=== PATIENT | male | born 1995 | race Caucasian/White ===

== ENCOUNTER 2024-01-04 18:31 | Emergency (ER) | payer OTHER ==
[~2024-01-04] VITALS: Ht 172.7 cm; Wt 80.0 kg
[2024-01-04 19:12] VITALS: BP 108/65; RESP 18; TEMP 98.3; O2SAT 99
[2024-01-04 19:21] VITALS: PULSE 85; O2SAT 100
[2024-01-04] MEDS ORDERED: KETOROLAC 15MG/ML VIAL IM ONE (20:45)
== END 2024-01-04 21:07 | disposition left against medical advice (07) ==
LOC: ER 18:31
DX: G89.29 Other chronic pain (principal); M54.9 Dorsalgia, unspecified
CPT/HCPCS: 99281

== ENCOUNTER 2024-12-15 16:06 | Emergency (ER) | payer MEDICAID ==
[~2024-12-15] VITALS: Ht 172.7 cm; Wt 65.0 kg
[2024-12-15 16:13] VITALS: O2SAT 98
[2024-12-15 16:59] LABS: BASOPHILS % 0.8 % (0.0-2.0); EOSINOPHILS % 1.2 % (0.0-5.0); HEMATOCRIT. 43.2 % (42.0-52.0); HEMOGLOBIN. 14.7 g/dL (14.0-18.0); LYMPHOCYTES % 30.5 % (20.0-50.0); MEAN PLATELET VOLUME 9.5 fl (7.4-10.4); MONOCYTES % 9.9 % (2.0-8.0); NEUTROPHILS % 57.6 % (40.0-76.0); PLATELET 164 x1000/uL (130-400); RED BLOOD CELL COUNT 5.00 mill/uL (4.7-6.1); RED CELL DISTRIBUTION WIDTH 12.9 % (11.6-14.6)
[2024-12-15 17:18] LABS: CREATININE 1.0 mg/dL (0.6-1.3)
[2024-12-15 17:19] LABS: UREA NITROGEN BLOOD 10 mg/dL (9-23)
[2024-12-15 17:20] LABS: ASPARTATE AMINOTRANSFERASE 21 IU/L (<34)
[2024-12-15 17:21] LABS: BILIRUBIN DIRECT 0.2 mg/dL (<=3.0); BILIRUBIN TOTAL 0.6 mg/dL (0.1-1.0); PROTEIN TOTAL 7.6 g/dL (6.0-8.3)
[2024-12-15] MEDS: ONDANSETRON 4MG ODT PO ONE (17:39)
[2024-12-15] MEDS: FAMOTIDINE 20MG TABLET PO ONE (17:39)
[2024-12-15 18:14] LABS: CREATININE 1.1 mg/dL (0.6-1.3)
[2024-12-15 18:15] LABS: UREA NITROGEN BLOOD 9 mg/dL (9-23)
[2024-12-15 19:05] LABS: CLARITY URINE CLEAR (CLEAR); COLOR URINE YELLOW (YELLOW); GLUCOSE URINE NEGATIVE (NEGATIVE); KETONES URINE NEGATIVE (NEGATIVE); LEUKOCYTE ESTERASE URINE NEGATIVE (NEGATIVE); NITRITE URINE NEGATIVE (NEGATIVE); OCCULT BLOOD URINE NEGATIVE (NEGATIVE); PH URINE 7.0 (4.5-8.0); PROTEIN URINE NEGATIVE (NEGATIVE); SPECIFIC GRAVITY URINE 1.019 (1.005-1.030); UROBILINOGEN URINE 0.2 E.U./dL (0.2-1.0)
[2024-12-15] MEDS ORDERED: ONDA-239 PO (19:54)
[2024-12-15 20:20] VITALS: BP 124/78; PULSE 54; RESP 16; TEMP 36.9; O2SAT 97
== END 2024-12-15 20:22 | disposition home or self-care (01) ==
LOC: ER 16:06
DX: R11.2 Nausea with vomiting, unspecified (principal); R19.7 Diarrhea, unspecified; F12.90 Cannabis use, unspecified, uncomplicated
CPT/HCPCS: 99284; 74176; 80076; 80048; 81003; 83690; 85025; 36415; Q0162